=== PATIENT | female | born 1985 | race Asian ===

== ENCOUNTER 2018-01-29 20:24 | Emergency (ER) | payer MEDICAID, OTHER ==
[~2018-01-29] VITALS: Ht 160 cm; Wt 54.0 kg
[2018-01-30 00:29] VITALS: BP 93/55
== END 2018-01-30 01:30 | disposition home or self-care (01) ==
LOC: ER 20:24
DX: J06.9 Acute upper respiratory infection, unspecified (principal); G56.01 Carpal tunnel syndrome, right upper limb; F17.210 Nicotine dependence, cigarettes, uncomplicated; F12.90 Cannabis use, unspecified, uncomplicated
CPT/HCPCS: 81025; 99282